=== PATIENT | female | born 1995 ===

== ENCOUNTER 2019-08-26 18:26 | Emergency (ER) | payer OTHER ==
[2019-08-26] MEDS ORDERED: Lidocaine 1% MPF ** 5 ML VIAL INJ ONE (18:40)
--- NOTE | 2019-08-26 19:27 | ED ---
Laceration/Wound HPI - HPI Summary HPI Summary: 24-year-old male presents with right arm laceration. She states that she cut it skiing. 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 Unsure if there is actively bleeding as she has large dressing on area. She has full range of motion of the finger. She is right-handed. Tetanus was 3 years ago. she has no medical conditions. - History of Current Complaint Stated Complaint: RIGHT HAND INJURY PER PT Time Seen by Provider: 08/26/19 18:32 Pain Intensity: 2 - Allergy/Home Medications Allergies/Adverse Reactions: Allergies Allergy/AdvReac Type Severity Reaction Status Date / Time No Known Allergies Allergy Verified 08/26/19 18:30 PMH/Surg Hx/FS Hx/Imm Hx Endocrine/Hematology History: Denies: Hx Anticoagulant Therapy Respiratory History: Denies: Hx Asthma Infectious Disease History: No Infectious Disease History: Denies: Traveled Outside the [place] in Last 30 Days - Family History Known Family History: Positive: Non-Contributory - Social History Alcohol Use: Occasionally Smoking Status (MU): Never Smoked Tobacco Review of Systems Negative: Fever Negative: Chest Pain Negative: Shortness Of Breath Positive: Other - laceration right thumb All Other Systems Reviewed And Are Negative: Yes Physical Exam Triage Information Reviewed: Yes Vital Signs On Initial Exam: Initial Vitals Temp Pulse Resp BP Pulse Ox 98.9 F 82 18 125/84 99 08/26/19 18:26 08/26/19 18:26 08/26/19 18:26 08/26/19 18:26 08/26/19 18:26 Vital Signs Reviewed: Yes Appearance: Positive: Well-Appearing Skin: Positive: Warm, Dry, Other - 3cm by 1/2cm laceration to right thumb Head/Face: Positive: Normal Head/Face Inspection Eyes: Positive: Normal, Conjunctiva Clear ENT: Positive: Pharynx normal Respiratory/Lung Sounds: Positive: Clear to Auscultation, Breath Sounds Present Cardiovascular: Positive: Normal, RRR Musculoskeletal: Positive: Other - right thumb Neurological: Positive: Normal Psychiatric: Positive: Normal Procedures - Sedation Patient Received Moderate/Deep Sedation with Procedure: No - Laceration/Wound Repair 1 Location: Other - right thumb Description: Linear Anesthesia: Local, 1.0% Length, Depth and Shape: 3cm by 1/2cm Irrigated w/ Saline (ccs): 500 Closure: Single Layer Suture Type: Prolene Number of Sutures: 4 Diagnostics - Vital Signs Vital Signs Temp Pulse Resp BP Pulse Ox 08/26/19 18:26 98.9 F 82 18 125/84 99 - Laboratory Lab Statement: Any lab studies that have been ordered have been reviewed, and results considered in the medical decision making process. Laceration Repair Course/Dx - Course Course Of Treatment: 24-year-old male presents with right arm laceration. She states that she cut it skiing. 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 Unsure if there is actively bleeding as she has large dressing on area. She has full range of motion of the finger. She is right-handed. Tetanus was 3 years ago. she has no medical conditions. On exam has 3cm by 1/ 2cm laceration of proximal phalanx of right thumb. Cleaned area and placed 4 sutures. told to keep area clean and dry. Patient understands and agrees the plan. - Differential Dx Differental Diagnoses: Abrasion, Avulsion, Laceration - Clinical Impression Provider Diagnoses: Laceration of right thumb Discharge ED - Sign-Out/Discharge Documenting (check all that apply): Patient Departure - Discharge Plan Condition: Good Disposition: HOME Patient Education Materials: Care For Your Stitches (ED) Referrals: No Primary Care Phys,NOPCP [Primary Care Provider] - Additional Instructions: Take Tylenol or ibuprofen for pain every 6 hours as needed Keep area clean and dry for 24 hours Return to ED or primary in 8-10 days to have sutures removed Return to ED if develop any new or worsening symptoms - Billing Disposition and Condition Condition: GOOD Disposition: Home
[2019-08-26 20:09] VITALS: BP 114/70
== END 2019-08-26 20:10 | disposition home or self-care (01) ==
LOC: ED 18:26
DX: S41.111A Laceration without foreign body of right upper arm, initial encounter (principal); X58.XXXA Exposure to other specified factors, initial encounter; Y93.23 Activity, snow (alpine) (downhill) skiing, snowboarding, sledding, tobogganing and snow tubing; Y92.9 Unspecified place or not applicable
CPT/HCPCS: 12002; 99282